=== PATIENT | female | born 1970 | race Caucasian/White ===

== ENCOUNTER 2016-07-04 12:16 | Observation (INO) | payer OTHER ==
--- NOTE | ~2016-07-04 | CO ---
Unit #: [id number] #: [id number] Patient: ADONAY RUABLCAVA [id number] [address] [address] [id number] I MR#: [id number] NAME: ADONAY RUBALCAVA ROOM: 304 Age: 45 Sex: F Admission Date: 07/04/2016 : 1970 Attending Physician: Zoey Johnson M.D. Primary Care Physician: Rosa Katz M.D. CONSULTATION REPORT REASON FOR CONSULTATION Evaluation for presyncope and weakness. HISTORY OF PRESENT ILLNESS She is a 45-year-old female who has no prior history of cardiac disease. She was admitted yesterday because of generalized weakness and fatigue and episode of presyncope. At this moment, she is feeling comfortable. Denies any chest pain, short of breath, orthopnea, PND, palpitation. I reviewed her EKG and orthostasis; they are all normal. PAST MEDICAL HISTORY Positive for hypothyroidism. PAST SURGICAL HISTORY She has a history of hysterectomy, breast augmentation, partial thyroidectomy due to nodules in her thyroid. SOCIAL HISTORY She lives with a friend. 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 Does not smoke. Does not drink. FAMILY HISTORY Negative for premature sudden . ALLERGIES No allergies. MEDICATION She takes levothyroxine 0.088 mg. REVIEW OF SYSTEMS A complete review of systems is negative except as indicated in HPI. She had a stress test done 5 years ago, but she had never had a cardiac cath in the past. PHYSICAL EXAMINATION GENERAL: She looks comfortable, not in any kind of distress. VITAL SIGNS: Her heart rate is 75 and regular, blood pressure is 130/60, respiratory rate is 16. HEENT: Eyes, conjunctivae normal. Pupils are round and reactive. Oral mucosa is moist. No central cyanosis. NECK: She has no thyromegaly. Carotid upstroke is normal. No bruits. JVD is not elevated. CHEST: She is breathing normal and clear on auscultation. Unit #: [id number] #: [id number] Patient: ADONAY RUBALCAVA CARDIAC: She has no parasternal lift. S1 and S2 normally heard. No gallop. No murmur. ABDOMEN: Soft. Liver and spleen not enlarged. Abdominal aorta not palpable. Guaiac test not indicated. EXTREMITIES: She has no pedal edema. 2+ bilateral femoral and dorsalis pedis vessels. Digits, no clubbing. SKIN: No rash or abnormal pigmentation. NEUROLOGIC: She is oriented x3. Mood is normal. Muscle tone normal. ASSESSMENT 1. Weakness, probably related to too much Synthroid. Her TSH is 0.09, which is low. 2. Presyncope, which probably related to her hyperthyroidism condition. PLAN From cardiac standpoint, I will do echo. EKG is already normal and at this moment she does not need further cardiac testing. I will contact primary service to readjust her dose of thyroxine. She probably can be discharged home today. Dictated by... Emeli Wright/juan TD: 07/06/2016 01:26 JOB #: [id number] CONSULTATION REPORT Page 1 of 1 X Nakul Nesbitt MD X CONSULTATION REPORT
--- NOTE | ~2016-07-04 | HP ---
Unit #: [id number] #: [id number] Patient: ADONAY RUBALCAVA [id number] [place], [place] [address] [id number] E MR#: [id number] NAME: ADONAY RUBALCAVA ROOM: Age: 45 Sex: F Admission Date: 07/04/2016 : 1970 Attending Physician: Refugio Gilman D.O. Referring Physician: Self Referral-Refer Use Only Primary Care Physician: Rosa Katz M.D. HISTORY AND PHYSICAL CHIEF COMPLAINT Weakness, headache. HISTORY OF PRESENT ILLNESS The patient is a 45-year-old female with past medical history of hypothyroidism, who presented to the emergency department for evaluation of the above. The patient states that she has had a one week history of increasing generalized weakness and fatigue. She denies any chest pain. She has had dyspnea on exertion with minimal activity. She denies any cough, no fever. She has had decreased appetite but no vomiting or diarrhea. She denies any change in her weight, no change in her medications. In the emergency department EKG showed normal sinus rhythm with a rate of 75 beats per minute. She is being admitted to [facility] for evaluation and further treatment. She denies any similar episode. PAST MEDICAL HISTORY Hypothyroidism. PAST SURGICAL HISTORY 1. Hysterectomy. 2. Breast augmentation. 3. Partial thyroidectomy for cold nodules ultimately found to be benign per the patient. SOCIAL HISTORY The patient lives with her . 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 She denies tobacco or alcohol use. She typically walks without assistance. She does not exercise regularly. FAMILY HISTORY Family history is notable for her dad having diabetes. ALLERGIES No known allergies. HOME MEDICATIONS Levothyroxine and bupropion. Home medications will need to be reviewed and verified. Unit #: [id number] #: [id number] Patient: ADONAY RUBALCAVA REVIEW OF SYSTEMS A complete review of systems is negative except as indicated in the HPI. The patient states that she had a stress test more than five years ago. She has never had a cardiac catheterization. DIAGNOSTIC STUDIES CARDIOVASCULAR: EKG shows normal sinus rhythm with a rate of 75 beats per minute. LABORATORY: Urine beta hCG is negative. Complete blood count is normal. Comprehensive metabolic panel normal. Urinalysis essentially negative. TSH is 0.09. Troponin is less than 0.05. Rapid flu screen is negative. D-dimer is 245. IMAGING: CT of the head is normal. PHYSICAL EXAMINATION VITAL SIGNS: Temperature is 98.1. Pulse 77. Respirations 17. Blood pressure 134/96. Oxygen saturation is 100% on room air. GENERAL: The patient is a female who is awake and alert, in no acute distress. HEENT: The head is atraumatic. Mucous membranes are moist. NECK: Neck is supple. Trachea is midline. CARDIOVASCULAR: Regular rate and rhythm. LUNGS: Lungs are clear to auscultation bilaterally with no increased work of breathing. ABDOMEN: Abdomen is soft, nontender, with bowel sounds present in all four quadrants. EXTREMITIES: Nontender with no pedal edema. NEUROLOGIC: The patient is awake and alert. She is oriented x3. She follows commands. She is generally weak. PSYCH: Mood and affect are normal. The patient is cooperative. SKIN: Skin of examined areas is warm and dry. ASSESSMENT The patient is a 45-year-old female with: 1. Near syncope. 2. Dyspnea on exertion. 3. General weakness. 4. Hypothyroidism. PLAN 1. Admit to intermediate level for observation. 2. Normal saline at 125 mL an hour. 3. Orthostatics q. shift. 4. Fall precautions. 5. PT/OT to evaluate and treat. 6. Serial cardiac enzymes. 7. N.p.o. after midnight for possible stress test. 8. Consult Dr. Washington for near syncope and dyspnea on exertion. 9. Fasting lipid panel. 10. Repeat labs in the morning. 11. Will adjust levothyroxine when home dose is verified. 12. Repeat labs in the morning. 13. SCDs for DVT prophylaxis. 14. Additional workup and consultants based on above. Unit #: [id number] #: [id number] Patient: ADONAY RUBALCAVA Dictated by Emeli Peck/adriel TD: 07/04/2016 19:09 JOB #: [id number] HISTORY AND PHYSICAL Page 1 of 1 X Margie Hughes MD X HISTORY AND PHYSICAL
--- NOTE | ~2016-07-04 | CT71 ---
[facility] A Service of [facility] RADIOLOGY TEXT RESULTS PATIENT: ADONAY RUBALCAVA LOCATION: [facility] 304-01 : 70 UNIT #: [id number] AGE: [address]: Margie Hughes MD SEX: F ORDER DR: [id number] [facility] [address] [facility]. [place], [place] [address] [id number] E MR#: [id number] Acc #: [id number] NAME: ADONAY RUBALCAVA : 1970 SEX: F STUDY DATE/TIME: 07/04/2016 14:01 UNIT: MAR ROOM: STUDY DESCRIPTION: CT Head Wo Contrast Attending Physician: Refugio Gilman D.O. Referring Physician: Carlitos Self Referred Ordering Physician: Tatyana Rojo Pa-C Primary Care Physician: Rosa Katz M.D. MEDICAL IMAGING REPORT This report is preliminary unless electronic signature is present EXAM CT scan of the head without contrast. HISTORY Weakness for one week. Left-sided shoulder weakness. Occipital headache for a week. COMPARISON STUDIES No comparison. TECHNIQUE Axial noncontrast images were obtained from the skull base to the vertex. This CT exam was performed with one or more of the following radiation dose reduction techniques: automatic exposure control, adjustment of mA and/or kV according to patient size, and iterative reconstruction. FINDINGS Ventricular size and configuration are normal. There is no evidence of acute infarct or hemorrhage. There are no extraaxial fluid collections. No mass lesion or mass effect is seen. There are no skull fractures. IMPRESSION Normal noncontrast head CT. Dictated by... Salvador Garcia M.D. THIS IS AN ELECTRONICALLY VERIFIED REPORT Salvador Garcia M.D. at 07/05/2016 7:14 AM [facility] A Service [facility] RADIOLOGY TEXT RESULTS PATIENT: ADONAY RUBALCAVA LOCATION: [facility] 304-01 : [birth year] UNIT #: [id number] AGE: [address]: Margie Hughes MD SEX: F ORDER DR: LINDA/bobo TD: 07/04/2016 17:04 JOB #: [id number] MEDICAL IMAGING REPORT Page 1 of 1 COPY
--- NOTE | ~2016-07-04 | EKG ---
PATIENT: ADONAY RUBALCAVA UNIT #: [id number] Ventricular Rate: 75 BPM Atrial Rate: 75 BPM P-R Interval: 144 ms QRS Duration: 76 ms Q-T Interval: 394 ms QTC Calculation(Bezet): 439 ms P Marion: 22 degrees Calculated R Marion: 53 degrees Calculated T Marion: 23 degrees Diagnosis Line: Normal sinus rhythm Diagnosis Line: Normal ECG Diagnosis Line: No previous ECGs available Diagnosis Line: Confirmed by COLIN PEARSON MD ([id number]) on 07/04/2016 Diagnosis Line: 11:06:28 PM INTERPRETING MD: MICHEL ARTHUR
--- NOTE | ~2016-07-04 | DS ---
Unit #: [id number] #: [id number] Patient: ADONAY RUBALCAVA [id number] [place], [place] [address] [id number] I MR#: [id number] NAME: ADONAY RUBALCAVA ROOM: 304 Age: 45 Sex: F Admission Date: 07/04/2016 : 1970 Discharge Date: 07/05/2016 Attending Physician: Zoey Johnson M.D. Primary Care Physician: Rosa Katz M.D. DISCHARGE SUMMARY PRIMARY CARE PHYSICIAN Roas Katz M.D. PRINCIPAL DIAGNOSES 1. Presyncope. 2. Generalized weakness. 3. New onset fatigue of uncertain etiology. 4. History of hypothyroidism with decreased TSH, free T4 is currently pending. 5. Depression. CONSULTANTS Dr. Nesbitt, Cardiology. PROCEDURES 1. Two-dimensional echocardiogram which is currently pending. 2. CT of the head without contrast on 07/04/2016 which was normal. CLINICAL HISTORY AND HOSPITAL COURSE Ms. Hassan is a very nice 45-year-old female, who presents to the emergency department with dizziness, poor appetite, and excessive weakness. Please refer to H and P for further details. CT scan of the head without contrast was unremarkable in the emergency department. Lab work was also completely normal and the patient was placed in observation for evaluation. The patient remained on telemetry overnight in normal sinus rhythm. Cardiology was consulted given presyncope, but they do not suspect that this is cardiac in origin. Two-dimensional echocardiogram is currently pending and will be followed up in Dr. Nesbitt's office. Only significant laboratory abnormality was a decreased TSH of 0.09. The patient states her thyroid dose was increased in 11/2015 and a repeat TSH approximately in 2 months later was normal. I am still awaiting a free T4, and at this point, I have discussed with the patient continuing her current dose of TSH until that lab work is available given some sort of viral infection or otherwise can result in abnormal TSH. Physical exam does not reveal any significant abnormalities which may contribute. The patient has been under significant amount of stress and this might be contributing factor which I have discussed with her and her . I think she can be discharged home later today with close followup of thyroid functions per Dr. Katz. Unit #: [id number] #: [id number] Patient: ADONAY RUBALCAVA DISCHARGE CONDITION Stable. DISCHARGE STATUS Discharged to home. DISCHARGE MEDICATIONS Wellbutrin 75 mg p.o. b.i.d., levothyroxine 88 mcg p.o. daily. Please note, free T4 may result in a change in this dose. DISCHARGE INSTRUCTIONS The patient was instructed to follow regular diet. She can increase her activity as tolerated. FOLLOWUP The patient will follow up with Dr. Katz in 1 week. Dictated by... Zoey Johnson M.D. VIRAJ/juan TD: 07/06/2016 02:55 JOB #: [id number] DISCHARGE SUMMARY Page 1 of 1 X Zoey Johnson MD X DISCHARGE SUMMARY
[2016-07-04 11:32] LABS: BASOPHIL% 0.8 % (0-2.5); DIFF IND NO; EOSINOPHIL# 0.1 X10e3 (0-0.7); EOSINOPHIL% 1.5 % (0.0-7.0); HEMATOCRIT 41.7 % (35.0-45.0); HEMOGLOBIN 13.9 gm/dL (12.0-16.0); LYMPHOCYTE# 1.9 X10e3 (1.0-3.5); LYMPHOCYTE% 32.1 % (17.0-45.0); MEAN CELL VOLUME 86.2 FL (83-96); MEAN CORPUSCULAR HEMOGLOBIN 28.7 PG (28-34); MEAN CORPUSCULAR HGB CONC 33.3 g/dL (30-36); MEAN PLATELET VOLUME 9.8 FL (6.5-11.5); MONOCYTE# 0.4 X10e3 (0-1.0); MONOCYTE% 7.4 % (3.0-12.0); NEUTROPHIL# 3.4 X10e3 (1.5-7.1); NEUTROPHIL% 58.2 % (40-75); PLATELET COUNT 182 X10e3 (140-420); RED BLOOD COUNT 4.84 X10e (3.90-5.30); RED CELL DISTRIBUTION WIDTH 12.7 % (11.0-15.5); WHITE BLOOD COUNT 5.8 X10e3 (4.0-10.5)
[2016-07-04 11:56] LABS: URINE SOURCE CLEAN CATCH
[2016-07-04 12:05] LABS: ALBUMIN SERUM 4.2 g/dL (3.5-5.0); BILIRUBIN,TOTAL 0.6 mg/dL (0.2-2.0); CALCIUM SERUM 9.4 mg/dL (8.4-10.2); CREATININE SERUM 0.9 mg/dL (0.6-1.4); GLOM FILT RATE Estimated 77.3 mL/min (>60); PROTEIN TOTAL SERUM 7.4 g/dL (6.0-8.3)
[2016-07-04 12:10] LABS: URINE APPEARANCE CLEAR; URINE BACTERIA AUWI NEG (NEGATIVE); URINE BILIRUBIN NEG (NEG); URINE BLOOD TRACE (NEG); URINE COLOR YELLOW; URINE GLUCOSE NEG (NEG); URINE KETONE NEG (NEG); URINE LEUKOCYTE ESTERASE TRACE (NEG); URINE NITRATE NEG (NEG); URINE PH 5.5 (5-8); URINE PROTEIN NEG (NEG); URINE SQUAMOUS EPITHELIAL CELL NONE SEEN /[HPF]; URINE UROBILINOGEN 0.2 MG/DL (NEG); UWBCS1 AUWI 0-2 (0-5)
[2016-07-04 12:12] LABS: CULTURE INDICATED? NO
[2016-07-04 13:28] LABS: POC - CKMB <1.0 ng/mL (0.0-7.9); POC - TROPONIN <0.05 ng/mL (<=0.05)
[2016-07-04 13:56] LABS: INFLUENZA A NEG (NEG); INFLUENZA B NEG (NEG)
[2016-07-04 20:05] LABS: CK TOTAL 50 IU/L (26-140)
[2016-07-04] MEDS ORDERED: LEVOXYL88 MC1 PO (21:38)
[2016-07-04] MEDS ORDERED: WELLBUTRIN75 M1 PO (21:39)
[2016-07-05 02:31] LABS: CK TOTAL 50 IU/L (26-140)
[2016-07-05 06:31] LABS: HEMATOCRIT 37.5 % (35.0-45.0); HEMOGLOBIN 12.5 gm/dL (12.0-16.0); MEAN CELL VOLUME 86.4 FL (83-96); MEAN CORPUSCULAR HEMOGLOBIN 28.8 PG (28-34); MEAN CORPUSCULAR HGB CONC 33.4 g/dL (30-36); MEAN PLATELET VOLUME 9.8 FL (6.5-11.5); RED BLOOD COUNT 4.35 X10e (3.90-5.30); RED CELL DISTRIBUTION WIDTH 12.5 % (11.0-15.5); WHITE BLOOD COUNT 5.2 X10e3 (4.0-10.5)
[2016-07-05 07:30] LABS: CALCIUM SERUM 8.7 mg/dL (8.4-10.2); CREATININE SERUM 0.8 mg/dL (0.6-1.4); GLOM FILT RATE Estimated 89.1 mL/min (>60); POTASSIUM 4.1 mmol/L (3.5-5.1)
== END 2016-07-05 14:35 | disposition home or self-care (01) | DRG 312 ==
LOC: CED 12:16 → CEDOF 18:35 → C3A PCU 22:47
PROVIDERS: Family Medicine; Physician Assistant Medical
DX: R55 Syncope and collapse (principal); R53.1 Weakness; R53.83 Other fatigue; F32.9 Major depressive disorder, single episode, unspecified; R06.00 Dyspnea, unspecified; E89.0 Postprocedural hypothyroidism; Z79.899 Other long term (current) drug therapy; Z90.710 Acquired absence of both cervix and uterus; Z98.890 Other specified postprocedural states; Z83.3 Family history of diabetes mellitus
CPT/HCPCS: 70450; 80048; 80053; 80061; 81003; 82550; 82553; 84439; 84443; 84484; 84703; 85025; 85027; 85379; 87804; 93005; 93306; 97161; 97165; 99285; G0378